=== PATIENT | female | born 1980 | race Caucasian/White ===

== ENCOUNTER 2017-10-05 02:43 | Emergency (ER) | payer OTHER ==
[2017-10-05] MEDS ORDERED: NORMAL SALINE 1000 ML 1,000 ML IV ONE (03:05)
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
[2017-10-05 03:37] LABS: ABSOLUTE BASOPHILS # (AUTO) 0.1 10^3/uL (0.0-0.2); ABSOLUTE EOSINOPHILS # (AUTO) 0.3 10^3/uL (0.0-0.6); ABSOLUTE LYMPHOCYTES (AUTO) 3.5 10^3/uL (0.5-4.7); ABSOLUTE MONOCYTES (AUTO) 0.5 10^3/uL (0.1-1.4); ABSOLUTE NEUT (AUTO) 2.3 10^3/uL (1.7-8.2); BASOPHILS % (AUTO) 1.2 % (0-2); HEMATOCRIT 34.6 % (36.0-47.0); LYMPHOCYTES % (AUTO) 53.4 % (13-45); MEAN CORPUSCULAR HEMOGLOBIN 32.6 pg (27.0-33.4); MEAN CORPUSCULAR HGB CONC 34.6 g/dL (32.0-36.0); MEAN CORPUSCULAR VOLUME 94 fl (80-97); MONOCYTES % (AUTO) 7.2 % (3-13); PLATELET COUNT 298 10^3/uL (150-450); RED BLOOD COUNT 3.67 10^6/uL (3.72-5.28); RED CELL DISTRIBUTION WIDTH 13.9 % (11.5-14.0); SEGMENTED NEUTROPHILS % (AUTO) 34.2 % (42-78); TOTAL CELLS COUNTED % (AUTO) 100 %; WHITE BLOOD COUNT 6.6 10^3/uL (4.0-10.5)
[2017-10-05 03:49] LABS: ALANINE AMINOTRANSFERASE 20 U/L (9-52); ALBUMIN 4.5 g/dL (3.5-5.0); ALCOHOL 158 mg/dL (NONE DETECTED); ALKALINE PHOSPHATASE 57 U/L (38-126); ANION GAP 13 (5-19); ASPARTATE AMINO TRANSFERASE 28 U/L (14-36); BILIRUBIN,DIRECT 0.2 mg/dL (0.0-0.4); BILIRUBIN,TOTAL 0.2 mg/dL (0.2-1.3); BLOOD UREA NITROGEN 16 mg/dL (7-20); CALCIUM 9.3 mg/dL (8.4-10.2); CARBON DIOXIDE 26 mmol/L (22-30); CHLORIDE 111 mmol/L (98-107); GLUCOSE 90 mg/dL (75-110); POTASSIUM 3.9 mmol/L (3.6-5.0); SODIUM 150.3 mmol/L (137-145); TOTAL PROTEIN 7.7 g/dL (6.3-8.2)
[2017-10-05 03:50] LABS: URINE AMPHETAMINES SCREEN NEGATIVE; URINE BARBITURATES SCREEN NEGATIVE; URINE BENZODIAZEPINES SCREEN NEGATIVE; URINE COCAINE SCREEN NEGATIVE; URINE MARIJUANA (THC) SCREEN NEGATIVE; URINE METHADONE SCREEN NEGATIVE; URINE PHENCYCLIDINE SCREEN NEGATIVE
[2017-10-05] MEDS ORDERED: LORAZEPAM INJ 2 MG/1 ML VIAL IV ONE ×2 (04:39→04:44)
[2017-10-05] MEDS ORDERED: LORAZEPAM INJ 2 MG/1 ML VIAL ONE (04:39)
[2017-10-05] MEDS ORDERED: LEVETIRACETAM 1000 MG/NACL-ISO 1,000 MG/100 ML RTUPB IV ONE (04:44)
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
[2017-10-05] MEDS ORDERED: FENTANYL CITRATE INJ/PF 100 MCG/2 ML AMPUL IV ONE (06:20)
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
[2017-10-05] MEDS ORDERED: ACETAMINOPHEN 325 MG TABLET PO ONE (07:41)
[2017-10-05 09:17] VITALS: BP 106/60
== END 2017-10-05 09:20 | disposition home or self-care (01) ==
LOC: ER 02:43
DX: S06.0X0A Concussion without loss of consciousness, initial encounter (principal); M25.511 Pain in right shoulder; Y09 Assault by unspecified means; R56.9 Unspecified convulsions; T42.6X6A Underdosing of other antiepileptic and sedative-hypnotic drugs, initial encounter; Z91.14 Patient's other noncompliance with medication regimen; F41.9 Anxiety disorder, unspecified; R00.0 Tachycardia, unspecified; F17.200 Nicotine dependence, unspecified, uncomplicated; M54.9 Dorsalgia, unspecified; G89.29 Other chronic pain; Z88.8 Allergy status to other drugs, medicaments and biological substances; Z88.5 Allergy status to narcotic agent; Z88.0 Allergy status to penicillin; Z88.2 Allergy status to sulfonamides
CPT/HCPCS: 99285; 96361; 96375; 96365; 36415; 80307 ×2; 85025; 80053; 73030; 70450; 72125; J3010; J2060; J7030; J1953

== ENCOUNTER 2018-12-28 05:44 | Day surgery (SDC) | payer MEDICARE, MEDICAID ==
[~2018-12-28 05:44] MED LIST: CLINDAMYCIN 600 MG/D5W RTU 600 MG/50 ML RTUPB IV ONE; CLINDAMYCIN 600 MG/D5W RTU 600 MG/50 ML RTUPB IV PRN
[2018-12-28 06:37] LABS: ABSOLUTE BASOPHILS # (AUTO) 0.1 10^3/uL (0.0-0.2); ABSOLUTE EOSINOPHILS # (AUTO) 0.3 10^3/uL (0.0-0.6); ABSOLUTE LYMPHOCYTES (AUTO) 2.6 10^3/uL (0.5-4.7); ABSOLUTE MONOCYTES (AUTO) 0.6 10^3/uL (0.1-1.4); ABSOLUTE NEUT (AUTO) 2.2 10^3/uL (1.7-8.2); BASOPHILS % (AUTO) 1.3 % (0-2); EOSINOPHILS % (AUTO) 5.3 % (0-6); HEMATOCRIT 34.8 % (36.0-47.0); HEMOGLOBIN 11.8 g/dL (12.0-15.5); LYMPHOCYTES % (AUTO) 46.1 % (13-45); MEAN CORPUSCULAR HEMOGLOBIN 29.7 pg (27.0-33.4); MEAN CORPUSCULAR HGB CONC 33.9 g/dL (32.0-36.0); MEAN CORPUSCULAR VOLUME 88 fl (80-97); MONOCYTES % (AUTO) 9.7 % (3-13); PLATELET COUNT 285 10^3/uL (150-450); RED BLOOD COUNT 3.97 10^6/uL (3.72-5.28); RED CELL DISTRIBUTION WIDTH 13.5 % (11.5-14.0); SEGMENTED NEUTROPHILS % (AUTO) 37.6 % (42-78); TOTAL CELLS COUNTED % (AUTO) 100 %; WHITE BLOOD COUNT 5.7 10^3/uL (4.0-10.5)
[2018-12-28 06:51] LABS: ANION GAP 9 (5-19); BLOOD UREA NITROGEN 18 mg/dL (7-20); CALCIUM 9.2 mg/dL (8.4-10.2); CARBON DIOXIDE 27 mmol/L (22-30); CHLORIDE 103 mmol/L (98-107); GLUCOSE 98 mg/dL (75-110); POTASSIUM 4.2 mmol/L (3.6-5.0)
[2018-12-28] MEDS ORDERED: PROPOFOL INJ 200 MG/20 ML VIAL IV ONE (06:58)
[2018-12-28] MEDS ORDERED: MIDAZOLAM 2 MG/2 ML INJ ONE (06:58)
[2018-12-28] MEDS ORDERED: FENTANYL CITRATE INJ/PF 100 MCG/2 ML AMPUL ONE (06:58)
[2018-12-28] MEDS ORDERED: LIDOCAINE 2% INJ (20 MG/ML) 20 ML MDV ONE (06:59)
--- NOTE | 2018-12-28 07:17 | EKG REPORT ---
SEVERITY:- BORDERLINE ECG - SINUS RHYTHM EARLY PRECORDIAL TRANSITION ? ETIOLOGY : Confirmed by: Jerry Shine MD 28-Dec-2018 07:16:32
[2018-12-28] MEDS ORDERED: HYDROMORPHONE HCL INJ/PF 2 MG/ML AMPULE ONE (07:18)
[2018-12-28 07:21] LABS: APPEARANCE,URINE CLEAR; BILIRUBIN,URINE NEGATIVE (NEGATIVE); COLOR,URINE STRAW; GLUCOSE, URINE NEGATIVE (NEGATIVE); KETONES,URINE NEGATIVE (NEGATIVE); LEUKOCYTE ESTERASE,URINE NEGATIVE (NEGATIVE); NITRITE,URINE NEGATIVE (NEGATIVE); PROTEIN,URINE NEGATIVE (NEGATIVE); URINE SPECIFIC GRAVITY 1.012; UROBILINOGEN,URINE NEGATIVE mg/dL (<2.0)
[2018-12-28] MEDS ORDERED: FENTANYL CITRATE INJ/PF 100 MCG/2 ML AMPUL IV PRN ×3 (07:43)
[2018-12-28] MEDS ORDERED: DIPHENHYDRAMINE HCL 50 MG/ML VIAL IV PRN (07:43)
[2018-12-28] MEDS ORDERED: PROMETHAZINE HCL INJ 25 MG/1 ML VIAL IV PRN (07:43)
[2018-12-28] MEDS ORDERED: ONDANSETRON HCL INJ/PF 4 MG/2 ML SDV IV PRN (07:43)
[2018-12-28] MEDS ORDERED: OXYCODONE-ACETAMINOPHEN 5-325 MG TABLET PO PRN ×3 (07:43→09:19)
[2018-12-28] MEDS ORDERED: MORPHINE SULFATE 10 MG/ML INJ IV PRN (07:43)
[2018-12-28] MEDS: BUPIVACAINE HCL 0.5 % INJ/PF 30 ML SDV ONE ×2 (07:46→08:21)
--- NOTE | 2018-12-28 07:51 | RADIOLOGY REPORT (SQ) ---
EXAM DESCRIPTION: XR CHEST 1 VIEW COMPLETED DATE/TME: 12/28/2018 00:00 CLINICAL HISTORY: 38 years, Female, preop COMPARISON: None. NUMBER OF VIEWS: One TECHNIQUE: AP view of the chest LIMITATIONS: None. FINDINGS: The lungs are clear. The heart is normal in size. There is no pneumothorax or pleural effusion. The bones are unremarkable. IMPRESSION: No acute cardiopulmonary abnormality. copyright 2010 [employer]- All Rights Reserved
--- NOTE | 2018-12-28 08:28 | Operative Report ---
Operative Report DATE OF SURGERY: 12/28/18 PREOPERATIVE DIAGNOSIS: Left patellofemoral arthritis OPERATION: Left tibial tubercle osteotomy SURGEON: CAMRYN CASTLE ANESTHESIA: GA ESTIMATED BLOOD LOSS: 75 PROCEDURE: With the patient supine Afrin table the left lower extremities prepped and draped in sterile fashion. Limb is elevated for exsanguination tourniquet inflated to 300 torr. Longitudinal incision was made over the tibial tubercle and the anterior tibial crest. At this point a large amount of venous bleeding is encountered. The tourniquet was deflated and left deflated throughout the rest of the case. Hemostasis obtained with hemostats and electrocautery. Tibial tubercle was identified and a sub-periosteal approach the medial face is taken. Pins were placed along the intended osteotomy which begins medially and superficially and extends laterally and deep. 3 pins were parallel. Subsequent oscillating saw was used to fashion the osteotomy. The osteotomy is elevated with osteotomes until an ominous crack is heard. The osteotomy was then rotated superficially and medially and 3 Tuttle 6.5 titanium screws were used to anchor the osteotomy. The wound is irrigated. Hemostasis obtained with electrocautery. Wound was closed in layers interrupted Vicryl followed by hui. A sterile compressive dressing was applied and the patient's return to the PACU in satisfactory condition.
--- NOTE | 2018-12-28 08:32 | Discharge Summary ---
Discharge Summary (SDC) - Discharge Final Diagnosis: Left patellofemoral arthritis Date of Surgery: 12/28/18 Discharge Date: 12/28/18 Condition: Good Treatment or Instructions: Touchdown weightbearing restriction left lower extremity. Compression wrap stays in place until Wednesday. Underlying OpSite dressing can be left in place until you return to the office. Prescriptions: Oxycodone HCl/Acetaminophen [Percocet 5-325 mg Tablet] 1 tab PO Q6 PRN #40 tablet PRN Reason: Referrals: J CARLOS BUITRAGO FNP [Primary Care Provider] - Discharge Diet: As Tolerated, Regular Respiratory Treatments at Home: Deep Breathing/Coughing Discharge Activity: Balance Activity w/Rest, No tub bath Home Care Assistance: None Needed Adaptive Devices on Discharge: Rolling Walker Report the Following to Your Physician Immediately: Shortness of Breath, Fever over 101 Degrees, Drainage-Foul Smelling
[2018-12-28] MEDS ORDERED: TRANEXAMIC ACID INJ/PF 1,000 MG/10 ML SDV IV ONE (08:45)
[2018-12-28] MEDS ORDERED: ACETAMINOPHEN 1,000 MG/100 ML RTUPB IV ONE (09:02)
[2018-12-28] MEDS: HYDROMORPHONE HCL INJ/PF 2 MG/ML AMPULE ONE ×2 (09:05→09:26)
[2018-12-28] MEDS ORDERED: DEXAMETHASONE SOD PHOSPHATE INJ 4 MG/1 ML VIAL ONE (09:09)
[2018-12-28] MEDS ORDERED: ONDANSETRON HCL INJ/PF 4 MG/2 ML SDV ONE (09:09)
[2018-12-28] MEDS ORDERED: ONDANSETRON 4 MG TAB.RAPDIS PO PRN (09:19)
[2018-12-28] MEDS ORDERED: OXYCODONE-ACETAMINOPHEN 5-325 MG TABLET ONE (10:19)
--- NOTE | 2018-12-28 10:29 | RADIOLOGY REPORT (SQ) ---
EXAM DESCRIPTION: KNEE LEFT 2 VIEWS; NO CHG FLUORO COMPLETED DATE/TIME: 12/28/2018 10:20 am REASON FOR STUDY: LEFT TUBRICLE OSTEOTOMY ASSTE; LEFT KNEE TUBRICLE OSTEOTOMY ASST WITH FLUORO IN OR M22.2X2 PATELLOFEMORAL DISORDERS, LEFT KNEE Z79.899 OTHER SHELTER (CURRENT) DRUG THERAPY COMPARISON: None. FLUOROSCOPY TIME: 0.2 minutes Spot images saved to PACS. TECHNIQUE: Intra-operative images acquired during surgical procedure to evaluate progress. NUMBER OF IMAGES: 2 LIMITATIONS: None. FINDINGS: Fluoroscopy was provided for intraoperative procedure. Please refer to the operative repo rt for further discussion. IMPRESSION: IMAGE(S) OBTAINED DURING PROCEDURE. COMMENT: Quality ID [id number]: Final reports for procedures using fluoroscopy that document radiation exp osure indices, or exposure time and number of fluorographic images (if radiation exposure indices are not available) Please consult full operative report of the attending physician for description of the procedure. TECHNICAL DOCUMENTATION: JOB ID: [id number] [employer]- All Rights Reserved Reading location - IP/workstation name: [email or web address]
--- NOTE | 2018-12-28 10:29 | RADIOLOGY REPORT (SQ) ---
EXAM DESCRIPTION: KNEE LEFT 2 VIEWS; NO CHG FLUORO COMPLETED DATE/TIME: 12/28/2018 10:20 am REASON FOR STUDY: LEFT TUBRICLE OSTEOTOMY ASSTE; LEFT KNEE TUBRICLE OSTEOTOMY ASST WITH FLUORO IN OR M22.2X2 PATELLOFEMORAL DISORDERS, LEFT KNEE Z79.899 OTHER HALFWAY (CURRENT) DRUG THERAPY COMPARISON: None. FLUOROSCOPY TIME: 0.2 minutes Spot images saved to PACS. TECHNIQUE: Intra-operative images acquired during surgical procedure to evaluate progress. NUMBER OF IMAGES: 2 LIMITATIONS: None. FINDINGS: Fluoroscopy was provided for intraoperative procedure. Please refer to the operative repo rt for further discussion. IMPRESSION: IMAGE(S) OBTAINED DURING PROCEDURE. COMMENT: Quality ID [id number]: Final reports for procedures using fluoroscopy that document radiation exp osure indices, or exposure time and number of fluorographic images (if radiation exposure indices are not available) Please consult full operative report of the attending physician for description of the procedure. TECHNICAL DOCUMENTATION: JOB ID: [id number] [employer]- All Rights Reserved Reading location - IP/workstation name: [email or web address]
[2018-12-28 11:31] VITALS: BP 112/76
[2018-12-28] MEDS ORDERED: ROCURONIUM BROMIDE INJ 50 MG/5 ML VIAL IV ONE (14:38)
[2018-12-28] MEDS ORDERED: SUCCINYLCHOLINE CHLORIDE INJ 200 MG/10 ML VIAL ONE (14:38)
== END 2018-12-28 11:20 | disposition home or self-care (01) ==
LOC: OROUT 05:44
PROVIDERS: ATTEND Orthopaedic Surgery
DX: M22.2X2 Patellofemoral disorders, left knee (principal); Z79.899 Other long term (current) drug therapy; F17.210 Nicotine dependence, cigarettes, uncomplicated; E06.3 Autoimmune thyroiditis; K21.9 Gastro-esophageal reflux disease without esophagitis; E66.9 Obesity, unspecified; Z68.32 Body mass index [BMI] 32.0-32.9, adult; Z88.2 Allergy status to sulfonamides; Z88.0 Allergy status to penicillin; Z88.5 Allergy status to narcotic agent; Z01.818 Encounter for other preprocedural examination; M17.12 Unilateral primary osteoarthritis, left knee
CPT/HCPCS: 36415; 85025; 80048; 81001; 71045; 73560; 93005; 93010; 01392; 27418; C1713; C1769; J2250; J3490 ×4; J1100; J3010; A9270; J1170; J0330; J2405; J2704; J0131

== ENCOUNTER 2019-01-01 16:04 | Emergency (ER) | payer MEDICARE, MEDICAID ==
[2019-01-01] MEDS ORDERED: MORPHINE SULFATE 10 MG/ML INJ IV ONE ×2 (17:31→20:32)
--- NOTE | 2019-01-01 17:31 | ER Document Report ---
ED Medical Screen (RME) - General Chief Complaint: Knee Pain Stated Complaint: POST OP LEG PAIN Time Seen by Provider: 01/01/19 17:24 Primary Care Provider: J CARLOS BUITRAGO FNP [Primary Care Provider] - Follow up as needed TRAVEL OUTSIDE OF THE [place] IN LAST 30 DAYS: No - HPI Notes: 01/01/19 17:29 Patient is a 38-year-old female with history of mental health disorder, GERD, C rohn's who presents complaining of left leg redness, warmth, bleeding, increased pain/swelling status post tibial tubercle transfer/osteotomy performed by Dr. Sharma 4 days ago. Patient states that the area started bleeding today which is new for her. Denies CERRATO, fever, neck pain, URI, CP, SOB, Abd pain, dysuria, back pain, or rash. I have treated and performed a rapid initial assessment of this patient. A comprehensive ED assessment and evaluation of the patient, analysis of test results and completion of medical decision making process will be conducted by additional ED providers. PHYSICAL EXAMINATION: GENERAL: Well-appearing, well-nourished and in no acute distress. A&Ox4. Answers questions appropriately. Lt leg: + bleeding noted to dressing. + mild erythema and warmth associated. + tenderness. - Related Data Allergies/Adverse Reactions: ketorolac [From Toradol] Allergy (Verified 01/01/19 16:05) meloxicam [From Mobic] Allergy (Verified 01/01/19 16:05) meperidine [From Demerol] Allergy (Verified 01/01/19 16:05) NSAIDS (Non-Steroidal Anti-Inflamma Allergy (Verified 01/01/19 16:05) Penicillins Allergy (Verified 01/01/19 16:05) Sulfa (Sulfonamide Antibiotics) Allergy (Verified 01/01/19 16:05) adhesive tape Adverse Reaction (Verified 01/01/19 16:05) Past Medical History - Past Medical History Cardiac Medical History: Denies: Hx Coronary Artery Disease, Hx Heart Attack, Hx Hypertension Pulmonary Medical History: Denies: Hx Asthma, Hx Bronchitis, Hx COPD, Hx Pneumonia Neurological Medical History: Reports: Hx Seizures - LAST OCTOBER 2017 POST HEADE TRAUMA. Denies: Hx Cerebrovascular Accident Renal/ Medical History: Denies: Hx Peritoneal Dialysis GI Medical History: Reports: Hx Gastroesophageal Reflux Disease Musculoskeltal Medical History: Denies Hx Arthritis Psychiatric Medical History: Reports: Hx Bipolar Disorder - Immunizations Hx Diphtheria, Pertussis, Tetanus Vaccination: No Physical Exam - Vital signs Vitals: Temp Pulse Resp BP Pulse Ox 98.2 F 119 H 16 130/103 H 100 01/01/19 16:21 01/01/19 16:21 01/01/19 16:21 01/01/19 16:21 01/01/19 16:21 Course - Vital Signs Vital signs: Temp Pulse Resp BP Pulse Ox 98.2 F 119 H 16 130/103 H 100 01/01/19 16:21 01/01/19 16:21 01/01/19 16:21 01/01/19 16:21 01/01/19 16:21 Doctor's Discharge - Discharge Referrals: J CARLOS BUITRAGO FNP [Primary Care Provider] - Follow up as needed
[2019-01-01 18:10] LABS: ABSOLUTE BASOPHILS # (AUTO) 0.1 10^3/uL (0.0-0.2); ABSOLUTE EOSINOPHILS # (AUTO) 0.4 10^3/uL (0.0-0.6); ABSOLUTE MONOCYTES (AUTO) 0.9 10^3/uL (0.1-1.4); ABSOLUTE NEUT (AUTO) 4.1 10^3/uL (1.7-8.2); BASOPHILS % (AUTO) 0.7 % (0-2); EOSINOPHILS % (AUTO) 4.1 % (0-6); HEMOGLOBIN 11.4 g/dL (12.0-15.5); LYMPHOCYTES % (AUTO) 42.2 % (13-45); MEAN CORPUSCULAR HEMOGLOBIN 29.6 pg (27.0-33.4); MEAN CORPUSCULAR HGB CONC 33.4 g/dL (32.0-36.0); MEAN CORPUSCULAR VOLUME 89 fl (80-97); MONOCYTES % (AUTO) 9.4 % (3-13); PLATELET COUNT 416 10^3/uL (150-450); RED BLOOD COUNT 3.84 10^6/uL (3.72-5.28); SEGMENTED NEUTROPHILS % (AUTO) 43.6 % (42-78); TOTAL CELLS COUNTED % (AUTO) 100 %; WHITE BLOOD COUNT 9.4 10^3/uL (4.0-10.5)
[2019-01-01 18:21] LABS: ALBUMIN 4.8 g/dL (3.5-5.0); ALKALINE PHOSPHATASE 166 U/L (38-126); ANION GAP 12 (5-19); ASPARTATE AMINO TRANSFERASE 58 U/L (14-36); BILIRUBIN,DIRECT 0.3 mg/dL (0.0-0.4); BILIRUBIN,TOTAL 0.4 mg/dL (0.2-1.3); BLOOD UREA NITROGEN 24 mg/dL (7-20); CARBON DIOXIDE 28 mmol/L (22-30); CHLORIDE 98 mmol/L (98-107); GLUCOSE 113 mg/dL (75-110); TOTAL PROTEIN 7.8 g/dL (6.3-8.2)
--- NOTE | 2019-01-01 18:28 | RADIOLOGY REPORT (SQ) ---
EXAM DESCRIPTION: TIBIA FIBULA LEFT COMPLETED DATE/TIME: 01/01/2019 6:10 pm REASON FOR STUDY: left leg pain, recent surgery COMPARISON: None. NUMBER OF VIEWS: Two views. TECHNIQUE: Two radiographic images acquired of the left tibia and fibula to include the knee and ank le in at least one projection. LIMITATIONS: None. FINDINGS: MINERALIZATION: Normal. BONES: No acute fracture or dislocation. Postsurgical changes from tibial tuberosity manipulation. No worrisome bone lesions. SOFT TISSUES: Expected postoperative changes in the anterior soft tissues. OTHER: No other significant finding. IMPRESSION: Expected postoperative changes. TECHNICAL DOCUMENTATION: JOB ID: [id number] [place]-72 2010 [email or web address]- All Rights Reserved Reading location - IP/workstation name: [email or web address]
[2019-01-01] MEDS ORDERED: TRAMADOL HCL 50 MG TABLET PO ONE (20:57)
--- NOTE | 2019-01-01 20:57 | ER Document Report ---
HPI - HPI Time Seen by Provider: 01/01/19 17:24 Pain Level: 4 Notes: Patient is a 38-year-old female presenting to the emergency department chief complaint of left knee pain. Patient reports she had a knee surgery done by Dr. Sharma 4 days ago. She states over the last 24 hours she has increased swelling, redness, pain and drainage from the area. She denies any fevers. She states she has been unable to take her Percocet as it "makes her crazy". - REPRODUCTIVE Reproductive: DENIES: : - DERM Skin Color: Normal, [place] Past Medical History - General Information source: Patient - Social History Smoking Status: Current Every Day Smoker Chew tobacco use (# tins/day): No Frequency of alcohol use: None Drug Abuse: None Family History: Reviewed & Not Pertinent Patient has suicidal ideation: No Patient has homicidal ideation: No - Past Medical History Cardiac Medical History: Denies: Hx Coronary Artery Disease, Hx Heart Attack, Hx Hypertension Pulmonary Medical History: Denies: Hx Asthma, Hx Bronchitis, Hx COPD, Hx Pneumonia Neurological Medical History: Reports: Hx Seizures - LAST OCTOBER 2017 POST HEADE TRAUMA. Denies: Hx Cerebrovascular Accident Renal/ Medical History: Denies: Hx Peritoneal Dialysis GI Medical History: Reports: Hx Gastroesophageal Reflux Disease Musculoskeletal Medical History: Denies Hx Arthritis Psychiatric Medical History: Reports: Hx Bipolar Disorder - Immunizations Hx Diphtheria, Pertussis, Tetanus Vaccination: No Vertical Provider Document - CONSTITUTIONAL Notes: PHYSICAL EXAMINATION: GENERAL: Well-appearing, well-nourished and in no acute distress. HEAD: Atraumatic, normocephalic. EYES: Pupils equal round extraocular movements intact, conjunctiva are normal. ENT: Nares patent NECK: Normal range of motion LUNGS: No respiratory distress Musculoskeletal: Swelling, mild erythema and ecchymosis noted to left anterior, medial and lateral knee area. There is a surgical dressing in place, there is serosanguineous drainage under the dressing. Mild heat noted. NEUROLOGICAL: Normal speech, normal gait. PSYCH: Normal mood, normal affect. SKIN: Warm, Dry, normal turgor, no rashes or lesions noted. - INFECTION CONTROL TRAVEL OUTSIDE OF THE [place] IN LAST 30 DAYS: No Course - Re-evaluation Re-evalutation: 01/01/19 20:[address] Sharma. He would like the patient to be started on tramadol, have the dressing changed and to be discharged home with plans to follow-up in his office on Wednesday. At the time of discharge patient now states she is allergic to tramadol. Patient will be instructed to continue taking Tylenol at home and follow-up with Dr. Sharma in his office. - Vital Signs Vital signs: Temp Pulse Resp BP Pulse Ox 98.2 F 119 H 16 130/103 H 100 01/01/19 16:21 01/01/19 16:21 01/01/19 16:21 01/01/19 16:21 01/01/19 16:21 - Laboratory Result Diagrams: 01/01/19 17:48 01/01/19 17:48 Laboratory results interpreted by me: 01/01/19 01/01/19 17:48 17:48 Hgb 11.4 L Hct 34.0 L BUN 24 H Glucose 113 H AST 58 H Alkaline Phosphatase 166 H Discharge - Discharge Clinical Impression: Post-op pain Condition: Stable Disposition: HOME, SELF-CARE Additional Instructions: You were seen in the emergency department today for postoperative concerns. Your work-up today was unremarkable. I spoke with your surgeon, Dr. Sharma who recommends starting you on tramadol but unfortunately you have stated that you are allergic. Please take tylenol for pain. Dr. Sharma would like to see you in his office on Wednesday, call them to schedule an appointment. Let them know you Were seen in the emergency department. Return to the emergency department with any new or worsening symptoms. Referrals: J CARLOS BUITRAGO FNP [Primary Care Provider] - Follow up as needed
[2019-01-01 21:52] VITALS: BP 114/65
== END 2019-01-01 21:55 | disposition home or self-care (01) ==
LOC: ER 16:04
DX: G89.18 Other acute postprocedural pain (principal); M25.562 Pain in left knee; F17.200 Nicotine dependence, unspecified, uncomplicated; Z88.5 Allergy status to narcotic agent
CPT/HCPCS: 96376; 99283; 96374; 36415; 87040; 85025; 80053; 73590; J2270

== ENCOUNTER 2019-01-30 09:50 | Day surgery (SDC) | payer MEDICARE, MEDICAID ==
[2019-01-30 10:32] LABS: APPEARANCE,URINE SLIGHTLY-CLOUDY; BILIRUBIN,URINE NEGATIVE (NEGATIVE); COLOR,URINE YELLOW; GLUCOSE, URINE NEGATIVE (NEGATIVE); KETONES,URINE NEGATIVE (NEGATIVE); LEUKOCYTE ESTERASE,URINE NEGATIVE (NEGATIVE); NITRITE,URINE NEGATIVE (NEGATIVE); PROTEIN,URINE NEGATIVE (NEGATIVE); UROBILINOGEN,URINE NEGATIVE mg/dL (<2.0)
[2019-01-30] MEDS ORDERED: FENTANYL CITRATE INJ/PF 100 MCG/2 ML AMPUL ONE (12:18)
[2019-01-30] MEDS ORDERED: MIDAZOLAM 2 MG/2 ML INJ ONE (12:18)
[2019-01-30] MEDS ORDERED: ONDANSETRON HCL INJ/PF 4 MG/2 ML SDV ONE (12:18)
[2019-01-30] MEDS ORDERED: DEXAMETHASONE SOD PHOSPHATE INJ 4 MG/1 ML VIAL ONE (12:18)
[2019-01-30] MEDS ORDERED: PROPOFOL INJ 200 MG/20 ML VIAL IV ONE (12:18)
[2019-01-30] MEDS ORDERED: BUPIVACAINE HCL 0.5%-EPI 1:200000 INJ/PF 30 ML VIAL ONE (12:48)
[2019-01-30] MEDS ORDERED: FENTANYL CITRATE INJ/PF 100 MCG/2 ML AMPUL IV PRN ×3 (13:13)
[2019-01-30] MEDS ORDERED: DIPHENHYDRAMINE HCL 50 MG/ML VIAL IV PRN (13:13)
[2019-01-30] MEDS ORDERED: PROMETHAZINE HCL INJ 25 MG/1 ML VIAL IV PRN ×2 (13:13)
[2019-01-30] MEDS ORDERED: MORPHINE SULFATE 10 MG/ML INJ IV PRN (13:13)
[2019-01-30] MEDS ORDERED: ONDANSETRON HCL INJ/PF 4 MG/2 ML SDV IV PRN (13:13)
--- NOTE | 2019-01-30 13:38 | Operative Report ---
Operative Report DATE OF SURGERY: 01/30/19 PREOPERATIVE DIAGNOSIS: Nonhealing left pretibial incision OPERATION: Debridement of existing wound and repeat closure SURGEON: CAMRYN CASTLE ANESTHESIA: GA TISSUE REMOVED OR ALTERED: Soft tissue to pathology ESTIMATED BLOOD LOSS: 25 PROCEDURE: With the patient supine on the waiting room table the left lower extremities prepped and draped in sterile fashion. Limb is elevated for exsanguination tourniquet inflated to 280 torr. Cultures are taken of the wound deep. Subsequently the existing incision is elliptically excised down to the underlying pre-tibial soft tissue including periosteum. Screw heads were not visualized easily. The wound was then irrigated with 3 L of normal saline containing bet Betadine using pulse lavage. The wound is closed in layers using interrupted PDS. A sterile compressive dressing was applied and the patient's return to the PACU in satisfactory condition.
--- NOTE | 2019-01-30 13:41 | Discharge Summary ---
Discharge Summary (SDC) - Discharge Final Diagnosis: Nonhealing left pretibial wound Date of Surgery: 01/30/19 Discharge Date: 01/30/19 Condition: Good Treatment or Instructions: Remain in knee brace. Compressive wrap can be removed on . Relying OpSite dressing can remain in place until you return to the office. Prescriptions: Ciprofloxacin HCl [Cipro 750 mg Tablet] 750 mg PO BID #20 tablet Oxycodone HCl/Acetaminophen [Percocet 5-325 mg Tablet] 1 tab PO Q6 PRN #40 tablet PRN Reason: Referrals: J CARLOS BUITRAGO FNP [Primary Care Provider] - Discharge Diet: As Tolerated, Regular Respiratory Treatments at Home: Deep Breathing/Coughing Discharge Activity: Balance Activity w/Rest, No tub bath, Other - Tobacco cessation Home Care Assistance: None Needed Report the Following to Your Physician Immediately: Shortness of Breath, Fever over 101 Degrees, Drainage-Foul Smelling
[2019-01-30] MEDS: HYDROMORPHONE HCL INJ/PF 2 MG/ML AMPULE ONE ×2 (14:15→14:20)
[2019-01-30] MEDS ORDERED: OXYCODONE-ACETAMINOPHEN 5-325 MG TABLET ONE (15:09)
[2019-01-30] MEDS ORDERED: SUCCINYLCHOLINE CHLORIDE INJ 200 MG/10 ML VIAL ONE (15:42)
[2019-01-30 16:40] VITALS: BP 119/69
--- NOTE | 2019-01-31 00:30 | EKG REPORT ---
SEVERITY:- NORMAL ECG - SINUS RHYTHM : Confirmed by: Adela Koch MD 31-Jan-2019 00:30:08
== END 2019-01-30 16:10 | disposition home or self-care (01) ==
LOC: OROUT 09:50
PROVIDERS: ATTEND Orthopaedic Surgery
DX: M25.562 Pain in left knee (principal); S83.92XA Sprain of unspecified site of left knee, initial encounter; X58.XXXA Exposure to other specified factors, initial encounter; T81.31XD Disruption of external operation (surgical) wound, not elsewhere classified, subsequent encounter; E07.9 Disorder of thyroid, unspecified; Z21 Asymptomatic human immunodeficiency virus [HIV] infection status; F17.210 Nicotine dependence, cigarettes, uncomplicated; Z79.899 Other long term (current) drug therapy
CPT/HCPCS: 87070; 87205; 87075; 81001; 88305 ×2; 93005; 93010; 00400; 11044; J2250; J1100; J3010; A9270; J1170; J0330; J2405; J2704; 400; J3490

== ENCOUNTER → 2019-03-24 | Outpatient (CLI) | payer MEDICARE, MEDICAID ==
--- NOTE | 2019-03-24 10:07 | WOMENS IMAGING REPORT ---
EXAM DESCRIPTION: BILAT SCREENING MAMMO W/CAD COMPLETED DATE/TIME: 03/24/2019 8:01 am REASON FOR STUDY: Z12.31 SCREENING MAMMO Z12.31 ENCNTR SCREEN MAMMOGRAM FOR MALIGNANT NEOPLASM OF B RE COMPARISON: None. EXAM PARAMETERS: Standard craniocaudal and mediolateral oblique views of each breast recorded using digital acquisition. Read with the assistance of CAD. .[facility] - [employer] Solicitation Director Version 9.2 LIMITATIONS: None. FINDINGS: No suspicious masses, suspicious calcifications or architectural distortion. No areas of c oncern. IMPRESSION: Negative MAMMOGRAM. BIRADS 1 BREAST DENSITY: b. There are scattered areas of fibroglandular density. BIRAD: ASSESSMENT: 1 NEGATIVE RECOMMENDATION: ROUTINE SCREENING COMMENT: The patient has been notified of the results by letter per MQSA requirements. Additional no tification policies are in place for contacting patient with suspicious or incomplete findings. Quality ID #225: The [employer] recommends an annual screening mammogram for women aged 40 years or over. This facility utilizes a reminder system to ensure that all patients receive reminder letters, and/or direct phone calls for appointments. This includes reminders for routine scr eening mammograms, diagnostic mammograms, or other Breast Imaging Interventions when appropriate. Th is patient will be placed in the appropriate reminder system. TECHNICAL DOCUMENTATION: FINDING NUMBER: (1) ASSESSMENT: (1) JOB ID: [id number] [employer]- All Rights Reserved Reading location - IP/workstation name: [email or web address]
== END ==
LOC: WI 07:45
PROVIDERS: ATTEND Nurse Practitioner
DX: Z12.31 Encounter for screening mammogram for malignant neoplasm of breast (principal)
CPT/HCPCS: 77067

== ENCOUNTER 2019-05-04 16:59 | Emergency (ER) | payer MEDICARE, MEDICAID ==
--- NOTE | 2019-05-04 17:19 | ER Document Report ---
ED Medical Screen (RME) - General Chief Complaint: Chest Pain Stated Complaint: CHEST PAIN Time Seen by Provider: 05/04/19 17:17 Primary Care Provider: REYNA AGUIRRE [Primary Care Provider] - Follow up as needed TRAVEL OUTSIDE OF THE [place] IN LAST 30 DAYS: No - HPI Notes: 05/04/19 17:18 Patient is a 38-year-old female with a history of GERD, HIV, obesity who presents complaining of having chest pain since last night that has improved today, but is still lingering. Pain does not radiate. Patient states that she did feel some shortness of breath last night with this as well. Patient states that she has had significant weight gain over the past few months as well. No fever. I have treated and performed a rapid initial assessment of this patient. A comprehensive ED assessment and evaluation of the patient, analysis of test results and completion of medical decision making process will be conducted by additional ED providers. PHYSICAL EXAMINATION: GENERAL: Well-appearing, well-nourished and in no acute distress. A&Ox4. Answers questions appropriately. LUNGS: Breath sounds clear to auscultation bilaterally and equal. No wheezes rales or rhonchi. HEART: Regular rate and rhythm Extremities: 1+ pitting edema bilaterally. Marcelino negative bilaterally. No lower extremity asymmetry. NEUROLOGICAL: Normal speech, normal gait. PSYCH: Normal mood, normal affect. - Related Data Allergies/Adverse Reactions: ketorolac [From Toradol] Allergy (Verified 05/04/19 17:18) meloxicam [From Mobic] Allergy (Verified 05/04/19 17:18) meperidine [From Demerol] Allergy (Verified 05/04/19 17:18) NSAIDS (Non-Steroidal Anti-Inflamma Allergy (Verified 05/04/19 17:18) Penicillins Allergy (Verified 05/04/19 17:18) Sulfa (Sulfonamide Antibiotics) Allergy (Verified 05/04/19 17:18) adhesive tape Adverse Reaction (Verified 05/04/19 17:18) Past Medical History - Past Medical History Cardiac Medical History: Denies: Hx Coronary Artery Disease, Hx Heart Attack, Hx Hypertension Pulmonary Medical History: Denies: Hx Asthma, Hx Bronchitis, Hx COPD, Hx Pneumonia Neurological Medical History: Reports: Hx Seizures - LAST OCTOBER 2017 POST HEADE TRAUMA. Denies: Hx Cerebrovascular Accident Renal/ Medical History: Denies: Hx Peritoneal Dialysis GI Medical History: Reports: Hx Gastroesophageal Reflux Disease Musculoskeltal Medical History: Denies Hx Arthritis Psychiatric Medical History: Reports: Hx Bipolar Disorder - Immunizations Hx Diphtheria, Pertussis, Tetanus Vaccination: No Doctor's Discharge - Discharge Referrals: LOCALMD,NO [Primary Care Provider] - Follow up as needed
--- NOTE | 2019-05-04 17:51 | RADIOLOGY REPORT (SQ) ---
EXAM DESCRIPTION: CHEST 2 VIEWS COMPLETED DATE/TIME: 05/04/2019 5:38 pm REASON FOR STUDY: CP COMPARISON: 12/28/2018 TECHNIQUE: Frontal and lateral radiographic views of the chest acquired. NUMBER OF VIEWS: Two view. LIMITATIONS: None. FINDINGS: LUNGS AND PLEURA: No pneumothorax. No consolidation or pleural effusion. MEDIASTINUM AND HILAR STRUCTURES: Stable. HEART AND VASCULAR STRUCTURES: Stable. BONES: No acute findings. HARDWARE: None in the chest. OTHER: No other significant finding. IMPRESSION: NO ACUTE FINDINGS. TECHNICAL DOCUMENTATION: JOB ID: [id number] 2010 [employer]- All Rights Reserved Reading location - IP/workstation name: [email or web address]
[2019-05-04 18:56] LABS: ALBUMIN 4.3 g/dL (3.5-5.0); ALKALINE PHOSPHATASE 111 U/L (38-126); ANION GAP 9 (5-19); ASPARTATE AMINO TRANSFERASE 56 U/L (14-36); BILIRUBIN,DIRECT 0.3 mg/dL (0.0-0.4); BILIRUBIN,TOTAL 0.5 mg/dL (0.2-1.3); BLOOD UREA NITROGEN 17 mg/dL (7-20); CALCIUM 9.3 mg/dL (8.4-10.2); CARBON DIOXIDE 25 mmol/L (22-30); CHLORIDE 107 mmol/L (98-107); GLUCOSE 95 mg/dL (75-110); POTASSIUM 4.3 mmol/L (3.6-5.0); TOTAL PROTEIN 7.5 g/dL (6.3-8.2)
--- NOTE | 2019-05-04 19:29 | EKG REPORT ---
SEVERITY:- NORMAL ECG - SINUS RHYTHM : Confirmed by: Jerry Shine MD 04-May-2019 19:28:29
[2019-05-04 19:39] LABS: ABSOLUTE BASOPHILS # (AUTO) 0.1 10^3/uL (0.0-0.2); ABSOLUTE EOSINOPHILS # (AUTO) 0.5 10^3/uL (0.0-0.6); ABSOLUTE LYMPHOCYTES (AUTO) 2.9 10^3/uL (0.5-4.7); ABSOLUTE MONOCYTES (AUTO) 0.6 10^3/uL (0.1-1.4); ABSOLUTE NEUT (AUTO) 1.4 10^3/uL (1.7-8.2); BASOPHILS % (AUTO) 1.8 % (0-2); EOSINOPHILS % (AUTO) 9.1 % (0-6); HEMATOCRIT 34.5 % (36.0-47.0); HEMOGLOBIN 11.6 g/dL (12.0-15.5); LYMPHOCYTES % (AUTO) 52.7 % (13-45); MEAN CORPUSCULAR HEMOGLOBIN 29.6 pg (27.0-33.4); MEAN CORPUSCULAR HGB CONC 33.7 g/dL (32.0-36.0); MEAN CORPUSCULAR VOLUME 88 fl (80-97); MONOCYTES % (AUTO) 11.4 % (3-13); PLATELET COUNT 296 10^3/uL (150-450); RED BLOOD COUNT 3.92 10^6/uL (3.72-5.28); RED CELL DISTRIBUTION WIDTH 14.3 % (11.5-14.0); TOTAL CELLS COUNTED % (AUTO) 100 %; WHITE BLOOD COUNT 5.6 10^3/uL (4.0-10.5)
[2019-05-04 20:07] LABS: NT PRO BNP 183 pg/mL (<125)
[2019-05-04 20:12] LABS: TROPONIN I < 0.012 ng/mL
[2019-05-04 20:35] LABS: APPEARANCE,URINE SLIGHTLY-CLOUDY; BILIRUBIN,URINE NEGATIVE (NEGATIVE); COLOR,URINE YELLOW; GLUCOSE, URINE NEGATIVE (NEGATIVE); KETONES,URINE NEGATIVE (NEGATIVE); PROTEIN,URINE 30 mg/dL (NEGATIVE); URINE SPECIFIC GRAVITY 1.029
--- NOTE | 2019-05-04 20:46 | ER Document Report ---
ED General - General Chief Complaint: Chest Pain Stated Complaint: CHEST PAIN Time Seen by Provider: 05/04/19 17:17 Primary Care Provider: REYNA AGUIRRE [NO LOCAL MD] - Follow up as needed TRAVEL OUTSIDE OF THE [place] IN LAST 30 DAYS: No - HPI Notes: Mrs. Ilda Augustine is a 38-year-old male resenting with a chief complaint of chest pain.Patient has a history of GERD, HIV, obesity and now presents complaining of having chest pain since last night that has improved today, but is still lingering. Pain is sharp beneath the left breast does not radiate. No skin rash. Patient states that she did feel some shortness of breath last night with this as well. No hemoptysis. No history of thromboembolic disease. Patient is not on any type of hormonal therapy patient states that she has had significant weight gain over the past few months as well. No fever. Pain is presently described as 2/10 intensity and increased with taking a deep breath or rolling to left side. Not affected by eating. Patient has no history of diabetes or hypertension. Elderly father had heart disease. Patient has had some hyperlipidemia. She is a pack per day cigarette smoker. She denies any personal history of cardiac disease. She does have a history of bipolar disorder. She notes that she was taking of her Vraylar and has been experiencing substantial weight gain which her psychiatrist thinks is probably related to this medicine and/or Geodon with which she has been treated. HEART Score: HISTORY 0/1/2 = 0 ECG 0/1/2 = 0 AGE <45, 45-64, 65+ = 0 RISK FACTORS 0=0, 1-2=1, 3+ = 3 TROPONIN normal =0 TOTAL: 3 If HEART score is = 3 AND both tronponin measurments are normal, the 30 day risk of a major adverse cardiac event (all-cause mortality, myocardia infarction or need for coronary revscularization) is < 1% (Sensitivity 100%, NPV 100%). PERC SCORE (HADCLOTS) H Hormone administration NEGATIVE A Age>50 NEGATIVE D DVT/PE previously NEGATIVE C Coughing up blood NEGATIVE L Leg swelling unilaterally NEGATIVE O O2 sat <95% NEGATIVE T Tachycardia NEGATIVE S Surgery/Trauma recently NEGATIVE - Related Data Allergies/Adverse Reactions: ketorolac [From Toradol] Allergy (Verified 05/04/19 17:18) meloxicam [From Mobic] Allergy (Verified 05/04/19 17:18) meperidine [From Demerol] Allergy (Verified 05/04/19 17:18) NSAIDS (Non-Steroidal Anti-Inflamma Allergy (Verified 05/04/19 17:18) Penicillins Allergy (Verified 05/04/19 17:18) Sulfa (Sulfonamide Antibiotics) Allergy (Verified 05/04/19 17:18) adhesive tape Adverse Reaction (Verified 05/04/19 17:18) Past Medical History - General Information source: Patient, Relative - Social History Smoking Status: Current Every Day Smoker Chew tobacco use (# tins/day): No Frequency of alcohol use: None Drug Abuse: None Family History: Reviewed & Not Pertinent Patient has suicidal ideation: No Patient has homicidal ideation: No - Past Medical History Cardiac Medical History: Denies: Hx Coronary Artery Disease, Hx Heart Attack, Hx Hypertension Pulmonary Medical History: Denies: Hx Asthma, Hx Bronchitis, Hx COPD, Hx Pneumonia Neurological Medical History: Reports: Hx Seizures - LAST OCTOBER 2017 POST HEADE TRAUMA. Denies: Hx Cerebrovascular Accident Renal/ Medical History: Denies: Hx Peritoneal Dialysis GI Medical History: Reports: Hx Crohn's Disease, Hx Gastroesophageal Reflux Disease Musculoskeletal Medical History: Denies Hx Arthritis Psychiatric Medical History: Reports: Hx Bipolar Disorder Past Surgical History: Reports: Hx Hysterectomy - Immunizations Hx Diphtheria, Pertussis, Tetanus Vaccination: No Review of Systems - Review of Systems Notes: Constitutional: Negative for fever. HENT: Negative for sore throat. Eyes: Negative for visual changes. Cardiovascular: As per HPI. Respiratory: As per HPI. Gastrointestinal: Negative for abdominal pain, vomiting or diarrhea. Genitourinary: Negative for dysuria. Musculoskeletal: Negative for back pain. Skin: Negative for rash. Neurological: Negative for headaches, weakness or numbness. 10 point ROS negative except as marked above and in HPI. Physical Exam - Vital signs Vitals: Temp Pulse Resp BP Pulse Ox 97.3 F 95 18 127/66 H 100 05/04/19 17:18 05/04/19 17:18 05/04/19 17:18 05/04/19 17:18 05/04/19 17:18 - Notes Notes: GENERAL: Well-developed well-nourished appearing in no acute distress. SKIN: Good turgor no rashes. HEAD: Normocephalic atraumatic. EYES: PERRLA. EOMI. Conjunctivae and sclerae clear. EARS: CANALS AND TMS CLEAR. NOSE: CLEAR. MOUTH: Moist mucosa. Good dentition. No stridor or edema. No drooling. NECK: Supple. No masses or thyromegaly. No adenopathy. Carotids 2+ without bruits. No JVD. BACK: Symmetrical without tenderness. CHEST: Reproducible anterior chest wall pain with palpation. Respirations unlabored. Breath sounds clear and symmetrical. HEART: Regular rhythm. No murmur gallop or rub. ABDOMEN: Soft nontender without masses, organomegaly or rebound. Bowel sounds normally active. No bruits. GENITALIA: Deferred. EXTREMITIES: No edema. No calf tenderness. Cap refill less than 1.5 seconds. Dorsalis pedis and posterior tibial pulses 3+ and symmetrical. NEUROLOGICAL: GCS 15. Alert and oriented x3. Normal gait. Fluent speech. Cranial nerves II through XII intact. Sensorimotor and cerebellar normal. Normal tone. PSYCHIATRIC: Flat affect. Course - Re-evaluation Re-evalutation: 05/04/19 20:48 First troponin and EKG are unremarkable. Her heart score is 3. I am going to get a d-dimer on her although her PERC score is negative. I think she probably has chest wall pain. I will check a second EKG and troponin level and anticipate outpatient follow-up with treatment for musculoskeletal chest wall pain. 05/05/19 01:17 Repeat troponin is normal. Patient has had no further pain here. Her EKG remains normal with no acute ST or T wave changes. Heart score is 3. D-dimer is elevated at 1.04. We will obtain a chest CT to rule out PE prior to disposition. 05/05/19 04:41 No PE reported on chest CTA per radiologist. Stable for outpatient follow-up with cardiology for treadmill testing. - Vital Signs Vital signs: Temp Pulse Resp BP Pulse Ox 97.3 F 95 19 114/60 98 05/04/19 17:18 05/04/19 17:18 05/04/19 20:01 05/04/19 20:01 05/04/19 21:20 - Laboratory Result Diagrams: 05/04/19 19:20 05/04/19 18:03 Laboratory results interpreted by me: 01/06/2205/04/19 05/04/19 17:39 18:03 18:03 Hgb Hct RDW Lymph % (Auto) Eos % (Auto) Absolute Neuts (auto) Seg Neutrophils % D-Dimer AST 56 H NT-Pro-B Natriuret Pep 183 H Urine Protein 30 H Urine Urobilinogen 2.0 H 05/04/19 05/04/19 19:20 19:20 Hgb 11.6 L Hct 34.5 L RDW 14.3 H Lymph % (Auto) 52.7 H Eos % (Auto) 9.1 H Absolute Neuts (auto) 1.4 L Seg Neutrophils % 25.0 L D-Dimer 1.04 H AST NT-Pro-B Natriuret Pep Urine Protein Urine Urobilinogen - Diagnostic Test Radiology reviewed: Reports reviewed - EKG Interpretation by Me Additional EKG results interpreted by me: 05/04/19 21:03 EKG from 1706 hrs. is interpreted contemporaneously by me demonstrating a normal sinus rhythm with rate of 91 and a normal axis. There are no acute ST/T wave ch anges. There is a borderline prolongation of the QT interval present. Discharge - Discharge Clinical Impression: Chest pain Qualifiers: Chest pain type: unspecified Qualified Code(s): R07.9 - Chest pain, unspecified Condition: Stable Disposition: HOME, SELF-CARE Instructions: Chest Pain of Unclear Cause ([facility]) Additional Instructions: Return here as needed for new or worsening symptoms. Take prescribed medication. Follow-up with referral founder chairman and chief creative officer for treadmill testing. Prescriptions: Cyclobenzaprine HCl [Flexeril 10 mg Tablet] 10 mg PO QHS PRN #15 tablet PRN Reason: Referrals: REYNA AGUIRRE [NO LOCAL MD] - Follow up as needed MARIPOSA COLLADO MD [ACTIVE STAFF] - Follow up as needed
[2019-05-04 21:05] LABS: URINE BARBITURATES SCREEN NEGATIVE; URINE COCAINE SCREEN NEGATIVE; URINE METHADONE SCREEN NEGATIVE; URINE PHENCYCLIDINE SCREEN NEGATIVE
[2019-05-04 21:07] LABS: URINE BENZODIAZEPINES SCREEN NEGATIVE; URINE MARIJUANA (THC) SCREEN NEGATIVE
--- NOTE | 2019-05-05 04:38 | RADIOLOGY REPORT (SQ) ---
CT angiogram chest with contrast on 05/05/2019 2:26 AM CLINICAL INDICATION: Chest pain, elevated d-dimer TECHNIQUE: Multiple axial images are obtained throughout the chest following the administration of IV contrast. Computer generated 3D reconstructions/MIPS were performed. This exam was performed according to our departmental dose-optimization program, which includes automated exposure control, adjustment of the mA and/or kV according to patient size and/or use of iterative reconstruction technique. Total DLP is 666.5 mGy*cm. COMPARISON: None FINDINGS: There is no thoracic aortic aneurysm or dissection. There is no pleural or pericardial effusion. There is evidence of calcified granulomatous disease in the chest. Unfortunately bolus timing is suboptimal for evaluation of pulmonary embolus. No evidence of a large or central pulmonary embolus is noted but cannot fully exclude small peripheral pulmonary emboli from this examination. There is no thoracic adenopathy. There is minimal bilateral dependent atelectasis. The lungs are otherwise clear. No bony abnormality is noted. Limited visualized upper abdomen is unremarkable. IMPRESSION: 1. Bolus timing is suboptimal with no evidence of a large or central pulmonary embolus but cannot fully exclude peripheral pulmonary emboli on this exam. 2. No acute abnormality.
[2019-05-05 05:24] VITALS: BP 112/60
--- NOTE | 2019-05-05 08:37 | EKG REPORT ---
SEVERITY:- NORMAL ECG - SINUS RHYTHM : Confirmed by: Jerry Shine MD 05-May-2019 08:36:37
== END 2019-05-05 05:05 | disposition home or self-care (01) ==
LOC: ER 16:59
DX: R07.9 Chest pain, unspecified (principal); R06.02 Shortness of breath; R63.5 Abnormal weight gain; F17.210 Nicotine dependence, cigarettes, uncomplicated; F31.9 Bipolar disorder, unspecified; Z79.899 Other long term (current) drug therapy; Z21 Asymptomatic human immunodeficiency virus [HIV] infection status; Z82.49 Family history of ischemic heart disease and other diseases of the circulatory system; Z88.8 Allergy status to other drugs, medicaments and biological substances; Z88.6 Allergy status to analgesic agent; Z88.5 Allergy status to narcotic agent; Z88.0 Allergy status to penicillin; Z88.2 Allergy status to sulfonamides
CPT/HCPCS: 93005; 99285; 36415; 83690; 85025; 81025; 80053; 81001; 84484; 80307 ×2; 85379; 83880; 71046; 71275; 93010; G0480

== ENCOUNTER 2019-10-02 05:50 | Day surgery (SDC) | payer MEDICARE, MEDICAID ==
[2019-10-02] MEDS ORDERED: PROPOFOL INJ 200 MG/20 ML VIAL IV ONE (06:59)
[2019-10-02 09:35] VITALS: BP 132/75
--- NOTE | 2019-10-02 11:33 | Operative Report ---
Operative Report DATE OF SURGERY: 10/02/19 Operative Report: The risks benefits and alternatives of the procedure explained to the patient in detail and informed consent is obtained.A GIF Olympus video scope was inserted into the patient's mouth and hypopharynx ,the esophagus is identified intubated and insufflated ,the scope was then advanced through the esophagus stomach and duodenum ,retroflexion maneuver is done, the esophagus stomach and first and second portions of the duodenum examined PREOPERATIVE DIAGNOSIS: Gastroesophageal reflux disease, nausea vomiting POSTOPERATIVE DIAGNOSIS: Esophagitis. Gastritis status post biopsy. hiatal hernia OPERATION: EGD with biopsy SURGEON: JAYLA JAMA ANESTHESIA: LMAC TISSUE REMOVED OR ALTERED: As noted above. COMPLICATIONS: None. ESTIMATED BLOOD LOSS: None. INTRAOPERATIVE FINDINGS: As noted above. PROCEDURE: Patient tolerated the procedure well. No immediate postprocedure complications are noted. Patient is discharged in good condition. Discharge date 10/02/2019. Discharge diet: Regular. Discharge activity: Regular. 2 to 3-week follow-up to discuss findings. Patient is instructed to call the office or proceed to the emergency room should there be any further problems questions. Wait on the pathology.
== END 2019-10-02 09:15 | disposition home or self-care (01) ==
LOC: OROUT 05:50
PROVIDERS: ATTEND Internal Medicine Gastroenterology
DX: K21.0 Gastro-esophageal reflux disease with esophagitis (principal); K29.50 Unspecified chronic gastritis without bleeding; K44.9 Diaphragmatic hernia without obstruction or gangrene; Z03.818 Encounter for observation for suspected exposure to other biological agents ruled out; Z87.891 Personal history of nicotine dependence; I10 Essential (primary) hypertension; Z85.41 Personal history of malignant neoplasm of cervix uteri; Z88.0 Allergy status to penicillin; Z88.2 Allergy status to sulfonamides; Z88.5 Allergy status to narcotic agent; Z21 Asymptomatic human immunodeficiency virus [HIV] infection status; G40.909 Epilepsy, unspecified, not intractable, without status epilepticus; E66.9 Obesity, unspecified
CPT/HCPCS: 43239; 88305 ×2; U0003; J2704; C9803; 731; 87635

== ENCOUNTER → 2019-10-23 | Outpatient (CLI) | payer MEDICARE, MEDICAID ==
--- NOTE | 2019-10-23 11:52 | RADIOLOGY REPORT (SQ) ---
EXAM DESCRIPTION: U/S ABDOMEN LIMITED W/O DOP IMAGES COMPLETED DATE/TIME: 10/23/2019 11:16 am REASON FOR STUDY: RIGHT UPPER QUADRANT PAIN R10.11 RIGHT UPPER QUADRANT PAIN COMPARISON: None. TECHNIQUE: Dynamic and static grayscale images acquired of the abdomen and recorded on PACS. Additio nal selected color Doppler and spectral images recorded. LIMITATIONS: None. FINDINGS: PANCREAS: Visualized portions the pancreas are unremarkable. LIVER: Liver is echogenic consistent with fatty infiltration. No focal lesions. LIVER VASCULATURE: Normal directional flow of the main portal vein and hepatic veins. GALLBLADDER: No stones. Normal wall thickness. No pericholecystic fluid. ULTRASOUND-DETECTED MALDONADO'S SIGN: Negative. INTRAHEPATIC DUCTS AND COMMON DUCT: CBD and intrahepatic ducts normal caliber. No filling defects. AORTA: No aneurysm. RIGHT KIDNEY: Normal size. Normal echogenicity. No solid or suspicious masses. No hydronephrosis. No calcifications. PERITONEAL AND RIGHT PLEURAL SPACE: No ascites or effusions. OTHER: No other significant findings. IMPRESSION: Fatty infiltrated liver. No other significant findings. TECHNICAL DOCUMENTATION: JOB ID: [id number] 2010 [employer]- All Rights Reserved Reading location - IP/workstation name: [email or web address]
--- NOTE | 2019-10-23 14:30 | RADIOLOGY REPORT (SQ) ---
EXAM DESCRIPTION: NM HIDA SCAN WITH CCK IMAGES COMPLETED DATE/TIME: 10/23/2019 1:22 pm REASON FOR STUDY: RIGHT UPPER QUADRANT PAIN R10.11 RIGHT UPPER QUADRANT PAIN COMPARISON: None. RADIONUCLIDE AND DOSE: DOSAGE RADIONUCLIDE: 5 millicuries Tc99m Mebrofenin. DOSAGE CCK: 2.5 micrograms. DOSAGE MORPHINE: Not required. The route of agent administration: Intravenous TECHNIQUE: Serial imaging right upper quadrant up to 60 minutes following injection of radionuclide. CCK injected after gallbladder visualized. LIMITATIONS: None. FINDINGS: LIVER: Normal visualization without areas of photopenia. INTRAHEPATIC BILE DUCTS: Normal size and no delay in visualization. COMMON BILE DUCT: Normal without dilatation. GALLBLADDER: Normal visualization. Calculated ejection fraction of 89%. Normal range is greater th an 35%. PHYSICAL RESPONSE: Patients presenting complaint was reproduced. OTHER: No other significant finding. IMPRESSION: No biliary dyskinesis. Ejection fraction is 89%. Patient's symptoms were reproduced wi th CCK administration. TECHNICAL DOCUMENTATION: JOB ID: [id number] 2010 [employer]- All Rights Reserved Reading location - IP/workstation name: [email or web address]
== END ==
LOC: RAD 10:20
PROVIDERS: ATTEND Internal Medicine Gastroenterology
DX: R10.11 Right upper quadrant pain (principal)
CPT/HCPCS: 76705; 78227; J2805; A9537; Q9969